=== PATIENT | male | born 2000 | race Hispanic/Latino ===

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

== ENCOUNTER → 2020-01-25 | Outpatient (CLI) | payer SELFPAY | LOC: YCFC.O 11:38 | PROVIDERS: ATTEND Nurse Practitioner Family | DX: Z20.828 Contact with and (suspected) exposure to other viral communicable diseases (principal) ==